=== PATIENT | female | born 1965 | race Caucasian/White ===

== ENCOUNTER → 2019-12-24 13:09 | Outpatient (CLI) | payer OTHER, MEDICAID, SELFPAY ==
--- NOTE | 2019-12-24 | DI.NM.S_ITS ---
PROCEDURE: NM DIA PERF SPECT REST & STR Rest and exercise myocardial perfusion SPECT with gated imaging and ejection fraction RADIOPHARMACEUTICAL: 25.7 mCi Tc-99m sestamibi IV at rest and 24.8 mCi Tc-99m sestamibi IV at peak exercise. A two day-protocol was performed. INDICATIONS: Chest pain TECHNIQUE: Radiopharmaceutical was injected at peak stress test, and also at rest. SPECT images were obtained. SPECT myocardial perfusion images were displayed in short axis, horizontal long axis, and vertical long axis views. Gated images were reviewed using [email or web address] software. COMPARISON: None. CARDIAC STRESS: A standard Florentino treadmill exercise tolerance test was performed by the patient under the supervision of an attending staff. The patient exercised for 9 minutes and 1 seconds; functional aerobic impairment (LAISHA) is -17%. Hemodynamic data: There is normal blood pressure and heart rate response to exercise stress. Patient achieved 87% of maximum predicted heart rate at peak exercise. Symptoms: Patient denied chest pain during exercise. EKG: Normal sinus rhythm at rest. There were T wave inversions in leads III and aVF with exercise (non-specific finding) without any ST changes; no ectopy. FINDINGS: Raw data: There is good myocardial labeling by radiotracer. No significant motion artifacts. Alhv-pi-mhyfw ratio is 0.37 (normal is less than 0.38 for sestamibi tracer, and less than 0.50 for thallium tracer). Left ventricle function: Gated images demonstrate normal left ventricle wall thickening. No segmental wall motion abnormality. No transient ischemic dilation; TID is 1.02 (normal less than 1.3). The left ventricle resting end-diastolic volume is 96 mL. Left ventricle stress ejection fraction is 76%; normal values are above 45%. Myocardial perfusion: There is normal distribution of activity in the left and right ventricular myocardium. No fixed or reversible perfusion defects. IMPRESSION: Low risk, normal treadmill nuclear stress test 1) No perfusion evidence of ischemia or infarction. 2) Normal left ventricular size, wall motion, and systolic function (EF post stress 76%). 3) Non-specific T wave changes without any ST changes with exercise. 4) No angina during the study. 5) Good exercise capacity (10.1 METs, LAISHA -17%). Target heart rate achieved. High normal BP response to exercise (rest BP 100/78, max BP 200/90). 6) No prior nuclear stress test available for comparison. Dictated by: Trevor Lopez MD on 12/25/2019 at 14:53 Approved by: Trevor Lopez MD on 12/25/2019 at 14:57
--- NOTE | 2019-12-25 09:29 | PM.TREADMILL ---
Cardiac Stress Test Report Referral & Results Date Patient Seen: 12/25/19 Time Patient Seen: 09:29 Requesting provider: Vahe Grimes Indication: chest pain Rest ECG: sinus rhythm with nonspecific st changes Procedure Note: Standard jolie procotol, 9:01, 8.9 METS; Good exercise capacity, LAISHA -17% Normal hemodynamic response to exercise No chest pain or anginal symptoms Resting ECG sinus rhythm, no significant ST changes, no ectopy Impression: normal exercise stress test. Mibi images pending Please note: Actual ECG tracings can be found in the PACS system.
== END ==
PROVIDERS: PCP Internal Medicine; Referring Provider Specialist; Visit Provider Specialist
DX: R07.89 Other chest pain (principal)
CPT/HCPCS: 78452; 93017; A9502